=== PATIENT | female | born 1985 | race American Indian/Alaskan Native ===

== ENCOUNTER 2020-02-23 07:40 | Emergency (ER) | payer SELFPAY ==
[2020-02-23 07:50] VITALS: BP 124/72
[2020-02-23] MEDS ORDERED: IBUPROFEN 800 MG TAB PO ONE (08:59)
--- NOTE | 2020-02-23 09:36 | Emergency Department Report ---
ED ENT HPI - General Chief complaint: Dental/Oral Stated complaint: TOOTH PAIN Time Seen by Provider: 02/23/20 08:57 Source: patient Mode of arrival: Ambulatory Limitations: No Limitations - History of Present Illness Initial comments: This is a 34-year-old female she complaining of dental pain right lower jaw which started 1 week ago. She denies any trauma fever chills any difficulty chewing or swallowing. She denies any past medical history no known allergies. MD complaint: tooth pain -: week(s) (1) Location: tooth # (32) Quality: aching Consistency: constant Improves with: none Worsens with: none Associated Symptoms: denies: fever, cough, gum swelling, pain with swallowing, sore throat, tinnitus, discharge from ear, rhinorrhea - Related Data Previous Rx's Medication Instructions Recorded Last Taken Type Acetaminophen/Codeine [Tylenol 1 tab PO Q6H PRN #15 tab 02/23/20 Unknown Rx /Codeine # 3 tab] Amoxicillin [Trimox] 500 mg PO Q8HR 10 Days #30 capsule 02/23/20 Unknown Rx Ibuprofen [Motrin] 600 mg PO Q8H PRN #20 tablet 02/23/20 Unknown Rx Allergies Allergy/AdvReac Type Severity Reaction Status Date / Time No Known Allergies Allergy Unverified 02/23/20 07:48 ED Dental HPI - General Chief complaint: Dental/Oral Stated complaint: TOOTH PAIN Time Seen by Provider: 02/23/20 08:57 Source: patient Mode of arrival: Ambulatory Limitations: No Limitations - Related Data Previous Rx's Medication Instructions Recorded Last Taken Type Acetaminophen/Codeine [Tylenol 1 tab PO Q6H PRN #15 tab 02/23/20 Unknown Rx /Codeine # 3 tab] Amoxicillin [Trimox] 500 mg PO Q8HR 10 Days #30 capsule 02/23/20 Unknown Rx Ibuprofen [Motrin] 600 mg PO Q8H PRN #20 tablet 02/23/20 Unknown Rx Allergies Allergy/AdvReac Type Severity Reaction Status Date / Time No Known Allergies Allergy Unverified 02/23/20 07:48 ED Review of Systems ROS: Stated complaint: TOOTH PAIN Other details as noted in HPI Comment: All other systems reviewed and negative Constitutional: no symptoms reported. denies: chills, fever ENT: dental pain. denies: ear pain, hearing loss, congestion, other Respiratory: denies: cough, shortness of breath, SOB with exertion Cardiovascular: denies: chest pain, palpitations, dyspnea on exertion, syncope, paroxysmal nocturnal dyspnea Endocrine: no symptoms reported Gastrointestinal: denies: abdominal pain, nausea, constipation, hematemesis Genitourinary: denies: dysuria, frequency, hematuria Neurological: denies: headache, numbness, paresthesias Psychiatric: denies: anxiety ED Past Medical Hx - Past Medical History Previous Medical History?: No - Surgical History Past Surgical History?: No - Social History Smoking Status: Never Smoker Substance Use Type: None - Medications Home Medications: Home Medications Medication Instructions Recorded Confirmed Last Taken Type Acetaminophen/Codeine [Tylenol 1 tab PO Q6H PRN #15 tab 02/23/20 Unknown Rx /Codeine # 3 tab] Amoxicillin [Trimox] 500 mg PO Q8HR 10 Days #30 capsule 02/23/20 Unknown Rx Ibuprofen [Motrin] 600 mg PO Q8H PRN #20 tablet 02/23/20 Unknown Rx ED Physical Exam - General Limitations: No Limitations General appearance: alert, in no apparent distress - Head Head exam: Present: atraumatic - Eye Eye exam: Present: normal appearance. Absent: scleral icterus - ENT ENT exam: Present: mucous membranes moist, TM's normal bilaterally, other (appears to have impactation at tooth # 32, no gum swelling or erythema. No facial swelling) - Neck Neck exam: Present: normal inspection, full ROM - Respiratory Respiratory exam: Present: normal lung sounds bilaterally - Cardiovascular Cardiovascular Exam: Present: regular rate, normal heart sounds - Extremities Exam Extremities exam: Present: normal inspection, full ROM - Back Exam Back exam: Present: normal inspection - Neurological Exam Neurological exam: Present: alert, oriented X3 - Psychiatric Psychiatric exam: Present: normal affect - Skin Skin exam: Present: warm, dry, intact ED Course Vital Signs 02/23/20 07:48 Temperature 98.9 F Pulse Rate 63 Respiratory 18 Rate Blood Pressure 124/72 O2 Sat by Pulse 98 Oximetry ED Medical Decision Making - Medical Decision Making Patient is in no distress. She has dental pain with no signs no obvious signs of infection no facial swelling no trismus no difficulty swallowing maintaining her airway well. The plan is to discharge patient home to follow-up with dentist as soon as possible Critical care attestation.: If time is entered above; I have spent that time in minutes in the direct care of this critically ill patient, excluding procedure time. ED Disposition Clinical Impression: Pain, dental Disposition: TO HOME OR SELFCARE Is pt being admited?: No Does the pt Need Aspirin: No Condition: Stable Instructions: Dental Caries (ED) Additional Instructions: Follow-up with dentist as soon as possible take all prescribed medications as prescribed. Return to the emergency room if you develop difficulty swallowing or facial swelling Prescriptions: Amoxicillin [Trimox] 500 mg PO Q8HR 10 Days #30 capsule Ibuprofen [Motrin] 600 mg PO Q8H PRN #20 tablet PRN Reason: Pain Acetaminophen/Codeine [Tylenol /Codeine # 3 tab] 1 tab PO Q6H PRN #15 tab PRN Reason: Pain , Severe (7-10) Time of Disposition: 09:40 (referral to local dental clinic)
== END 2020-02-23 10:03 | disposition home or self-care (01) ==
LOC: ED 07:40
DX: K08.89 Other specified disorders of teeth and supporting structures (principal); Z79.2 Long term (current) use of antibiotics; Z79.899 Other long term (current) drug therapy
CPT/HCPCS: 99281